=== PATIENT | male | born 1955 | race Caucasian/White ===

== ENCOUNTER 2017-05-29 13:27 | Emergency (ER) | payer BC ==
[2017-05-29 14:21] LABS: Hematocrit 38.1 % (42.0-52.0); Mean Platelet Volume 8.8 fL (7.4-10.4); Red Blood Cell (RBC) Count 3.48 mill/uL (4.70-6.10); White Blood Cell (WBC) Count 4.2 thou/uL (4.8-10.8)
[2017-05-29 14:45] LABS: ALT (SGPT) 46 U/L (8-55); AST (SGOT) 87 U/L (5-34); Alkaline Phosphatase 107 U/L (40-150); Anion Gap 10 mmol/L (10-20); BUN (Urea Nitrogen) 16 mg/dL (8.4-25.7); Calc. Creatinine Clearance 0 mL/min (70-130); Calcium 8.6 mg/dL (7.8-10.44); Carbon Dioxide 23 mmol/L (22-29); Chloride 114 mmol/L (98-107); Estimated GFR-MDRD 86; Globulin 3.8 g/dL (2.4-3.5); Protein, Total 6.5 g/dL (6.0-8.3)
[2017-05-29 14:50] LABS: Band 1 % (5-11); Macrocytosis SLIGHT = 6-15 cells (100X) (0-5/hpf); Neutrophil 50 % (42-75); Reactive Lymphocytes 7 % (0-10)
--- NOTE | 2017-05-29 16:47 | CT ---
CT OF THE BRAIN WITHOUT CONTRAST: Date: 05/29/17 COMPARISON: 03/01/17. HISTORY: Elevated LFTs with possible hepatic encephalopathy. Altered mental status. TECHNIQUE: Multiple contiguous axial images were obtained in a CT of the brain without contrast. FINDINGS: The brain is normal in morphology and attenuation without focal lesions or confluent areas of infarc tion. There is no evidence of hydrocephalus, intracranial hemorrhage, or extra-axial fluid collectio n. Mucosal thickening is seen in the paranasal sinuses. The mastoid air cells are well aerated. IMPRESSION: No evidence of acute intracranial abnormality. POS: [facility]
--- NOTE | 2017-05-29 16:54 | RAD ---
SINGLE VIEW OF CHEST: Date: 05/29/17 COMPARISON: None. HISTORY: Elevated LFTs and hepatic encephalopathy. Altered mental status. FINDINGS: Single view of the chest shows a normal sized cardiomediastinal silhouette. There is no evidence of consolidation, mass, or pleural effusion. The bones are unremarkable. IMPRESSION: No evidence of acute cardiopulmonary disease. POS: [facility]
[2017-05-29 17:02] LABS: PTT 38.8 SEC (22.9-36.1); Prothrombin Time 18.8 SEC (12.0-14.7)
[2017-05-29 17:19] LABS: ALT (SGPT) 44 U/L (8-55); AST (SGOT) 86 U/L (5-34); Alkaline Phosphatase 106 U/L (40-150); Bilirubin, Direct 1.2 mg/dL (0.1-0.3); Bilirubin, Total 3.4 mg/dL (0.2-1.2); Protein, Total 6.7 g/dL (6.0-8.3)
[2017-05-29 17:24] LABS: Troponin I Less than 0.010 ng/mL (< 0.028)
[2017-05-29 20:29] LABS: Amphetamine Not Detected (NotDetected); Methadone Not Detected (NotDetected); Methamphetamine Not Detected (NotDetected)
--- NOTE | 2017-05-29 20:50 | CON ---
DATE OF CONSULTATION: 05/29/2017 Consultation to the ER physician Dr. Castanon. PRIMARY CARE PROVIDER: Eligio Peraza D.O. PRESENT ILLNESS: The patient was sent to the ER after having lab. He saw Dr. Peraza today for the first time. He does not think he has any problems. He is alert and oriented with good fund of maurice marcelino. Denies any confusion. He states he has a little trouble with stability walking. He has a history of hepatitis C, which has been cured, history of cirrhosis. CURRENT MEDICATIONS: He takes 1 teaspoon of lactulose a day. ALLERGIES: None. PAST SURGICAL HISTORY: Tonsillectomy. FAMILY HISTORY: No inherited diseases, no diseases in mother and father. SOCIAL HISTORY: . FULL CODE status. No tobacco, no alcohol, dry 9 years. REVIEW OF SYSTEMS: GENERAL: No headaches, dizziness or fainting. EYES: No double vision, blurred vision, flashing lights. EAR, NOSE, AND THROAT: No ear pain or drainage. No nasal bleeding. No trouble swallowing. CARDIAC: No chest pain, orthopnea or paroxysmal nocturnal dyspnea. RESPIRATOR Y: No cough, wheezing or asthma. GASTROINTESTINAL: No nausea, vomiting, diarrhea or constipation. GENITOURINARY: No hematuria or dysuria. MUSCULOSKELETAL: No pain or swelling in his legs. NEUR OLOGIC: No history of strokes, seizures or focal weakness. PSYCHIATRIC: He has had some periods o f confusion in the past, but not currently. SKIN: Some easy bruising, no rash. HEME/LYMPH: No te nder or swollen lymph nodes in axilla, inguinal or cervical area. PHYSICAL EXAMINATION: GENERAL: He is an alert, oriented, and cooperative gentleman in no distress. VITAL SIGNS: Blood pressure 150/80, pulse 88, respirations 16, afebrile. HEENT: Examination of his head, eyes, ears, nose, and throat reveal pupils equal, round, and reacti ve to light. Extraocular movements are intact. Sclerae maybe just tinge icteric, but certainly not dramatically so. Tympanic membrane is clear. Nose is clear. Throat is clear. Dental hygiene is adequate. NECK: Supple, without jugular venous distention, adenopathy or thyromegaly. CHEST: Clear to auscultation and percussion. HEART: Had regular rate and rhythm. First and second heart sounds are clear. No murmurs or gallop s. ABDOMEN: Soft. No fluid wave. No distention. Bowel sounds normal. No mass or hepatosplenomegaly or bruits. EXTREMITIES: Reveal trace edema with no cyanosis or clubbing. SKIN: Warm and dry without significant ecchymoses or rash. PULSES: Carotid, radial, femoral, and dorsalis pedis pulses intact. NEUROLOGICAL: Cranial nerves II-XII are intact. Deep tendon reflexes symmetric. Moves all extremi ties. He does have mild asterixis. IMAGING STUDIES: Chest x-ray, unremarkable with no cardiomegaly, CHF or infiltrate, reviewed by me. Brain CT, no evidence of any acute intracranial abnormality, reviewed by me. LABORATORY DATA: Comp metabolic profile: chloride 114, total bilirubin 3-3.4, AST 87+ or -1, ALT 4 5+ or -1, ammonia is 98, and TSH is 1.7. DISCUSSION: The patient with cured hepatitis C with cirrhosis and coagulopathy. His INR is 1.5 and his PTT is 38.8. He does have an elevated ammonia 98 with a high normal of 72 and mild asterixis, but he is alert, oriented with good fund of knowledge. I discussed admission to the hospital, donna mcghee. After our discussion was that I would put him on increased dose of lactulose, he says he ca n go home and take that up, discussed it with the ER physician and he is going to take 15 mL of lact ulose 4 times a day and see Dr. Peraza in 1 week.
--- NOTE | 2017-06-17 16:09 | EKG ---
Test Reason : Blood Pressure : / mmHG Vent. Rate : 079 BPM Atrial Rate : 079 BPM P-R Int : 158 ms QRS Dur : 090 ms QT Int : 426 ms P-R-T Axes : 043 000 032 degrees QTc Int : 488 ms Sinus rhythm with occasional Premature ventricular complexes Possible Left atrial enlargement Prolonged QT Abnormal ECG Confirmed by HARSHAL NARANJO ([id number]), slot editor NANCY WILLIS ([id number]) on 06/17/2017 4:09:24 PM Referred By: Confirmed By:HARSHAL NARANJO
[2017-06-23] MEDS ORDERED: metroNIDAZOLE 500 MG/100 ML BAG ONE (11:47)
== END 2017-05-29 19:23 | disposition home or self-care (01) ==
LOC: ERS 13:27 → ERHOLD 19:23 → 2SE 20:57 → UNDOADMIN 20:57 → 2SE 21:04 → ERHOLD 22:15 → 2SE 22:15
DX: R79.89 Other specified abnormal findings of blood chemistry (principal); R27.8 Other lack of coordination
CPT/HCPCS: 36415; 70450; 71010; 80053; 80306; 80307; 82140; 82553; 83735; 84100; 84443; 84484; 85025; 85610; 85730; 93005; 96360; 96361

== ENCOUNTER 2021-06-11 16:01 | Inpatient (IN) | payer MEDICARE ==
[~2021-06-11 16:01] MED LIST: Iopamidol-370 76% 500 ML 1 ML ONE
[2021-06-11 16:56] LABS: #Lymphocytes 0.8 thou/uL (1.20-3.40); #Monocytes 0.8 thou/uL (0.11-0.59); #Neutrophils 6.8 thou/uL (1.40-6.50); %Basophils 0.4 % (0.0-1.0); %Eosinophils 0.4 % (0.0-10.0); %Lymphocytes 9.3 % (21.0-51.0); %Monocytes 9.7 % (0.0-10.0); %Neutrophils 80.3 % (42.0-75.0); Hemoglobin 10.4 g/dL (14.0-18.0); Mean Corpuscular HGB CONC 33.8 g/dL (32.0-36.0); Mean Corpuscular Hemoglobin 38.7 pg (27.0-31.0); Mean Platelet Volume 8.5 fL (7.4-10.4); Platelet Count 136 thou/uL (130-400); RBC Distribution Width 17.5 % (11.5-14.5); Red Blood Cell (RBC) Count 2.69 mill/uL (4.70-6.10); White Blood Cell (WBC) Count 8.4 thou/uL (4.8-10.8)
[2021-06-11 17:20] LABS: ALT (SGPT) 114 U/L (8-55); AST (SGOT) 917 U/L (5-34); Albumin 1.8 g/dL (3.4-4.8); Alkaline Phosphatase 215 U/L (40-110); Anion Gap 11 mmol/L (10-20); BUN (Urea Nitrogen) 30 mg/dL (8.4-25.7); Bilirubin, Total 21.4 mg/dL (0.2-1.2); Calc. Creatinine Clearance 0 mL/min (70-130); Calcium 7.8 mg/dL (7.8-10.44); Carbon Dioxide 24 mmol/L (23-31); Chloride 104 mmol/L (98-107); Globulin 4.5 g/dL (2.4-3.5); Glucose 94 mg/dL (80-115); Potassium 3.4 mmol/L (3.5-5.1); Protein, Total 6.3 g/dL (5.8-8.1); Sodium 136 mmol/L (136-145)
[2021-06-11 18:36] LABS: INR-International Normal Ratio 1.7; Prothrombin Time 19.7 sec (12.0-14.7)
[2021-06-11 18:37] LABS: PTT 54.2 sec (22.9-36.1)
[2021-06-11] MEDS ORDERED: Piperacillin/Tazobactam 4.5 GM in Sodium Chloride 0.9% 100 ML IVPB SCH (21:15)
[2021-06-11] MEDS ORDERED: Potassium Chloride 20 MEQ TAB PO SCH (21:15)
[2021-06-11] MEDS ORDERED: Ondansetron ODT 4 MG TAB PO PRN (21:22)
[2021-06-11] MEDS ORDERED: Ondansetron PF 4 MG/2 ML Vial IVP PRN (21:22)
[2021-06-11 22:30] LABS: Magnesium 2.1 mg/dL (1.6-2.6); Phosphorus 3.3 mg/dL (2.3-4.7)
[2021-06-11 23:20] LABS: Hemoglobin 9.7 g/dL (14.0-18.0)
[2021-06-12] MEDS ORDERED: Piperacillin/Tazobactam 3.375 GM in Sodium Chloride 0.9% 100 ML IVPB SCH (01:15)
[2021-06-12 01:23] VITALS: BMI 32.5
[2021-06-12] MEDS: Piperacillin/Tazobactam 3.375 GM in Sodium Chloride 0.9% 100 ML IVPB SCH ×2 (02:21→10:56)
[2021-06-12 03:39] LABS: Bacteria/HPF None Seen HPF (None Seen); Bilirubin 4+ (Negative); Blood, Urine Negative (Negative); Clarity Clear (Clear); Glucose, Urine (Dipstick) Normal (Negative); Ketone, Urine Negative (Negative); Leukocyte Negative Leu/uL (Negative); Nitrite Negative (Negative); Protein, Urine (Dipstick) Negative (Neg-Trace); RBC/HPF 0-3 HPF (0-3); Specific Gravity, Urine 1.027 (1.002-1.036); Squamous Epithelial None Seen HPF (0-3); Urine Culture Reflex No No; Urobilinogen Normal mg/dL (Less than 2); WBC/HPF 0-3 HPF (0-3)
[2021-06-12] MEDS ORDERED: Furosemide 40 MG/4 ML VIAL SLOW IVP SCH (06:00)
[2021-06-12 07:42] LABS: ALT (SGPT) 104 U/L (8-55); AST (SGOT) 825 U/L (5-34); Albumin 1.6 g/dL (3.4-4.8); Alkaline Phosphatase 185 U/L (40-110); Anion Gap 9 mmol/L (10-20); BUN (Urea Nitrogen) 28 mg/dL (8.4-25.7); Bilirubin, Total 19.2 mg/dL (0.2-1.2); Calc. Creatinine Clearance 58 mL/min (70-130); Calcium 7.4 mg/dL (7.8-10.44); Carbon Dioxide 24 mmol/L (23-31); Chloride 104 mmol/L (98-107); Globulin 3.9 g/dL (2.4-3.5); Glucose 90 mg/dL (80-115); Potassium 3.4 mmol/L (3.5-5.1); Protein, Total 5.5 g/dL (5.8-8.1); Sodium 134 mmol/L (136-145)
[2021-06-12] MEDS ORDERED: Sodium Chloride 0.65% Nasal 44 ML BOT EA NARE PRN (08:06)
[2021-06-12] MEDS ORDERED: Hydrocerin (Eucerin) Cream 120 gm Jar TOP PRN (08:06)
[2021-06-12] MEDS ORDERED: GUAIFENESIN SF SOLN 200 MG/10 ML UDCUP PO PRN (08:06)
[2021-06-12] MEDS ORDERED: Calcium Carbonate 500 MG ChewTAB PO PRN (08:06)
[2021-06-12] MEDS ORDERED: diphenhydrAMINE 50 MG/ML VIAL IVP PRN (08:06)
[2021-06-12] MEDS ORDERED: Bisacodyl 5 MG TAB PO PRN (08:06)
[2021-06-12] MEDS ORDERED: hydrALAZINE 20 MG/ML VIAL SLOW IVP PRN (08:06)
[2021-06-12] MEDS ORDERED: Artificial Tear Sol 15 ML BOT EA EYE PRN (08:06)
[2021-06-12] MEDS ORDERED: HYDROcodone/Acetaminophen 5/325 mg Tablet PO PRN (08:06)
[2021-06-12] MEDS ORDERED: Senokot S 8.6-50 MG TAB PO PRN (08:06)
[2021-06-12] MEDS ORDERED: Cepastat Lozenges 1 LOZ PO PRN (08:06)
[2021-06-12] MEDS ORDERED: Melatonin 3 MG TAB PO PRN (08:07)
[2021-06-12 08:38] LABS: Eosinophils 1 % (0-10); Hemoglobin 9.2 g/dL (14.0-18.0); Lymphocytes 14 % (21-51); MDiff Complete? YES; Mean Corpuscular HGB CONC 33.9 g/dL (32.0-36.0); Mean Corpuscular Hemoglobin 38.8 pg (27.0-31.0); Mean Platelet Volume 8.2 fL (7.4-10.4); Monocytes 8 % (0-10); Neutrophil 77 % (42-75); Platelet Count 119 thou/uL (130-400); Platelet Morphology Comment Appears Decreased; RBC Distribution Width 17.4 % (11.5-14.5); Red Blood Cell (RBC) Count 2.38 mill/uL (4.70-6.10); White Blood Cell (WBC) Count 7.3 thou/uL (4.8-10.8)
[2021-06-12] MEDS ORDERED: Famotidine 20 MG TAB PO SCH (09:00)
[2021-06-12] MEDS: Multivitamin W/ Minerals 1 TAB PO SCH (09:56)
[2021-06-12] MEDS: Pantoprazole 40 MG VIAL IVP SCH (09:56)
[2021-06-12] MEDS: Cyanocobalamin (Vitamin B-12) 1,000 MCG TAB PO SCH (09:56)
[2021-06-12] MEDS: Folic Acid 1 MG TAB PO SCH (09:56)
[2021-06-12] MEDS: Thiamine 100 MG TAB PO SCH (09:56)
[2021-06-12] MEDS: Albumin 25% 25 GM/100 ML BOT IVPB SCH ×3 (09:57→20:59)
[2021-06-12] MEDS ORDERED: Magnevist 469MG/ML 20 ML VIAL ONE (12:28)
[2021-06-12 17:17] LABS: SARS-CoV-2 PCR by NAA Not Detected (NotDetected)
[2021-06-13 08:01] LABS: #Lymphocytes 0.5 thou/uL (1.20-3.40); #Monocytes 0.8 thou/uL (0.11-0.59); #Neutrophils 5.9 thou/uL (1.40-6.50); %Basophils 0.2 % (0.0-1.0); %Eosinophils 0.4 % (0.0-10.0); %Lymphocytes 7.4 % (21.0-51.0); %Monocytes 11.3 % (0.0-10.0); %Neutrophils 80.7 % (42.0-75.0); Hemoglobin 8.4 g/dL (14.0-18.0); Mean Corpuscular HGB CONC 33.1 g/dL (32.0-36.0); Mean Corpuscular Hemoglobin 37.6 pg (27.0-31.0); Mean Platelet Volume 8.7 fL (7.4-10.4); Platelet Count 106 thou/uL (130-400); RBC Distribution Width 17.4 % (11.5-14.5); Red Blood Cell (RBC) Count 2.24 mill/uL (4.70-6.10); White Blood Cell (WBC) Count 7.3 thou/uL (4.8-10.8)
[2021-06-13] MEDS ORDERED: traMADol HCl 50 MG TAB PO PRN (08:27)
[2021-06-13 08:30] LABS: ALT (SGPT) 101 U/L (8-55); AST (SGOT) 892 U/L (5-34); Albumin 2.2 g/dL (3.4-4.8); Alkaline Phosphatase 165 U/L (40-110); Anion Gap 9 mmol/L (10-20); BUN (Urea Nitrogen) 26 mg/dL (8.4-25.7); Bilirubin, Total 22.1 mg/dL (0.2-1.2); Calc. Creatinine Clearance 67 mL/min (70-130); Calcium 7.6 mg/dL (7.8-10.44); Carbon Dioxide 24 mmol/L (23-31); Chloride 105 mmol/L (98-107); Globulin 3.6 g/dL (2.4-3.5); Glucose 96 mg/dL (80-115); Magnesium 2.2 mg/dL (1.6-2.6); Phosphorus 2.2 mg/dL (2.3-4.7); Potassium 3.4 mmol/L (3.5-5.1); Protein, Total 5.8 g/dL (5.8-8.1); Sodium 135 mmol/L (136-145)
[2021-06-13] MEDS: Pantoprazole 40 MG VIAL IVP SCH (09:11)
[2021-06-13] MEDS: Folic Acid 1 MG TAB PO SCH (09:11)
[2021-06-13] MEDS: Thiamine 100 MG TAB PO SCH (09:11)
[2021-06-13] MEDS: Cyanocobalamin (Vitamin B-12) 1,000 MCG TAB PO SCH (09:12)
[2021-06-13] MEDS: Multivitamin W/ Minerals 1 TAB PO SCH (09:12)
[2021-06-13] MEDS: Albumin 25% 25 GM/100 ML BOT IVPB SCH (09:12)
[2021-06-13] MEDS ORDERED: Piperacillin/Tazobactam 3.375 GM in Sodium Chloride 0.9% 100 ML IVPB SCH ×3 (17:00→21:00)
[2021-06-13 19:34] VITALS: BP 136/66; TEMP 98.5
== END 2021-06-13 21:52 | disposition short-term general hospital (02) | DRG 435 ==
LOC: ERS 16:01 → T4-A 20:23
PROVIDERS: ADMIT Internal Medicine; ATTEND Internal Medicine
DX: C22.0 Liver cell carcinoma (principal); K83.1 Obstruction of bile duct; N17.9 Acute kidney failure, unspecified; R18.8 Other ascites; D68.9 Coagulation defect, unspecified; D53.9 Nutritional anemia, unspecified; E87.6 Hypokalemia; B18.2 Chronic viral hepatitis C; D69.6 Thrombocytopenia, unspecified; E88.09 Other disorders of plasma-protein metabolism, not elsewhere classified; F03.90 Unspecified dementia, unspecified severity, without behavioral disturbance, psychotic disturbance, mood disturbance, and anxiety; Z90.49 Acquired absence of other specified parts of digestive tract
CPT/HCPCS: 36415; 71045; 74177; 74183; 80053; 81001; 82105; 82140; 82378; 83690; 83735; 83880; 84100; 84484; 85025; 85610; 85730; 86301; 93005; 93970; A9579; C9113; J1940; J2543; J3490; P9047; Q9967; U0003; U0005